=== PATIENT | female | born 1940 | race Hispanic/Latino ===

== ENCOUNTER 2017-09-25 17:54 | Emergency (ER) | payer MEDICARE ==
--- NOTE | 2017-09-25 18:36 | Emergency Department Report ---
ED CPR HPI - General Chief Complaint: Cardiac Arrest/CPR Stated Complaint: CARDIAC ARREST Time Seen by Provider: 09/25/17 18:30 Source: EMS, old records reviewed Mode of arrival: Stretcher Limitations: Other - History of Present Illness Initial Comments: The patient was found apneic and in asystole at the half-way. According to the report from the half-way staff, paramedics state that this was a recent of present. It is not known when the patient's last known well time was. Patient is a chronic dialysis patient. 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 MD Complaint: found unresponsive -: unknown Place: NH/SNF (according to medics recent) Initial Findings in the Field: systole ROSC in the Field: No Associated Injuries: No Treatments Prior to Arrival: other (Combitube) - Related Data Allergies Allergy/AdvReac Type Severity Reaction Status Date / Time Sulfa (Sulfonamide Allergy Unknown Verified 09/25/17 18:14 Antibiotics) ED Review of Systems ROS: Stated complaint: CARDIAC ARREST Other details as noted in HPI Comment: Unobtainable due to pts medical conditions ED Past Medical Hx - Past Medical History Previous Medical History?: Yes Hx Congestive Heart Failure: Yes Hx Renal Disease: Yes Additional medical history: atrial fib. anemia. thoracic aneurysm - Surgical History Additional Surgical History: vas cath - Social History Smoking Status: Unknown if ever smoked ED Physical Exam - General Limitations: Other General appearance: other - Head Head exam: Present: atraumatic - Eye Eye exam: Absent: scleral icterus - Neck Neck exam: Present: normal inspection - Respiratory Respiratory exam: Present: normal lung sounds bilaterally (with assist positive breath sounds and chest rise) - Cardiovascular Cardiovascular Exam: Present: other (asystole) - GI/Abdominal GI/Abdominal exam: Present: soft - Extremities Exam Extremities exam: Present: normal inspection - Neurological Exam Neurological exam: Present: other (GCS 3) - Skin Skin exam: Present: dry, pallor ED Course - Reevaluation(s) Reevaluation #1: The patient was found in asystole and apneic. She received greater than 15 minutes of ACLS with no return of spontaneous circulation. She was in asystole on arrival. She was pronounced DOA. Family was counseled. 09/25/17 18:39 Critical care attestation.: If time is entered above; I have spent that time in minutes in the direct care of this critically ill patient, excluding procedure time. ED Disposition Clinical Impression: Cardiac arrest Disposition: DC-20 Is pt being admited?: No Does the pt Need Aspirin: No Condition: Stable Time of Disposition: 18:39
== END 2017-09-25 20:05 ==
LOC: ED 17:54
DX: I46.9 Cardiac arrest, cause unspecified (principal); Z88.2 Allergy status to sulfonamides; I50.9 Heart failure, unspecified; I48.91 Unspecified atrial fibrillation
CPT/HCPCS: 92950